=== PATIENT | male | born 1985 | race Caucasian/White ===

== ENCOUNTER 2025-03-05 11:54 | Emergency (ER) | payer MEDICAID ==
[~2025-03-05] VITALS: Ht 170.2 cm; Wt 80.0 kg
[2025-03-05 13:39] VITALS: O2SAT 99
[2025-03-05] MEDS: IBUPROFEN 800MG TABLET PO ONE (14:38)
[2025-03-05] MEDS: AMOXICILLIN/POTASSIUM CLAVULANATE 875/125MG TAB PO ONE (14:38)
[2025-03-05] MEDS ORDERED: IBUP-2030 MT (16:21)
[2025-03-05] MEDS ORDERED: AMOX1TAB16 MT (16:24)
[2025-03-05 16:36] VITALS: BP 156/80; PULSE 67; RESP 22; O2SAT 100
== END 2025-03-05 16:44 | disposition home or self-care (01) ==
LOC: ER 11:54
DX: S52.692A Other fracture of lower end of left ulna, initial encounter for closed fracture (principal); S01.01XA Laceration without foreign body of scalp, initial encounter; Y04.0XXA Assault by unarmed brawl or fight, initial encounter; Y93.89 Activity, other specified; Y92.89 Other specified places as the place of occurrence of the external cause; Y99.8 Other external cause status
CPT/HCPCS: 12002; 29125; 73130; 99283